=== PATIENT | female | born 1985 | race Two or more races ===

== ENCOUNTER 2022-10-16 10:23 | Outpatient (REF) | payer OTHER, SELFPAY ==
--- NOTE | ~2022-10-16 | XR_ITS ---
EXAMINATION: XR LUMBOSACRAL SPINE CLINICAL INFORMATION: Low back pain. COMPARISON: None. TECHNIQUE: 3 views of the lumbosacral spine. FINDINGS: There are 5 [id number] lumbar vertebrae. The bony texture and alignment is satisfactory. No acute fracture, spondylolisthesis, or spondylolysis is identified. The disc spaces are maintained. Pedicles intact. Sacroiliac joints with mild sclerosis but no evidence of widening or ankylosis. XR/XR lumbar spine 2-3V IMPRESSION: No significant bony abnormality of the lumbar spine identified.
[2022-10-16 10:46] LABS: MANUAL DIFF FLAG NO
[2022-10-16 10:58] LABS: Basophils Absolute Auto 0.1 X10*3/uL (0.0-0.2); Basophils Percent Auto 0.7 % (0-2); Eosinophils Absolute Auto 0.3 X10*3/uL (0.0-0.4); Eosinophils Percent Auto 3.7 % (0-4); Hematocrit 42.5 % (37.0-47.0); Hemoglobin 14.5 g/dl (12.0-16.0); Imm Gran Abs Auto 0.02 X10*3/uL (0.00-0.03); Imm Gran Pct Auto 0.2 % (0.0-0.4); Lymphocytes Absolute Auto 2.7 X10*3/uL (1.2-4.9); Lymphocytes Percent Auto 32.8 % (20-40); Mean Corpuscular HGB Conc 34.1 g/dl (31.0-35.0); Mean Corpuscular Hemoglobin 30.7 pg (27.0-33.0); Mean Platelet Volume 9.4 fL (9.4-12.3); Monocytes Absolute Auto 0.4 X10*3/uL (0.1-1.2); Neutrophils Absolute Auto 4.6 x10*3/uL (2.0-8.3); Neutrophils Percent Auto 57.6 % (45-73); Platelet Count 352 X10*3/uL (160-400); Red Blood Count 4.72 X10*6/uL (4.20-5.50); Red Cell Distribution Width 11.7 % (11.0-16.0); White Blood Count 8.1 X10*3/uL (4.8-10.8)
[2022-10-16 12:18] LABS: Alanine Aminotransferase 11 U/L (0-31); Albumin Level 3.7 g/dL (3.5-5.0); Alkaline Phosphatase 111 U/L (39-117); Anion Gap 11 (12-20); Aspartate Amino Transferase 12 U/L (5-31); Bilirubin Total 0.5 mg/dL (0.0-1.0); Blood Urea Nitrogen 7 mg/dL (9-16); Calcium 9.2 mg/dL (8.4-10.2); Carbon Dioxide 28 mmol/L (22-29); Chloride 105 mmol/L (96-108); Cholesterol 190 mg/dL; Estimated Glomerular Filt Rate > 60; Glucose Fasting 103 mg/dL (60-99); HDL Cholesterol 61 mg/dL; LDL Cholesterol Calculated 113 mg/dl; Potassium 4.6 mmol/L (3.3-5.1); Sodium 139 mmol/L (135-145); Thyroid Stimulating Hormone 1.53 uIU/mL (0.32-4.0); Total Protein 6.4 g/dL (6.5-8.0); Triglycerides 83 mg/dL
== END 2022-10-16 10:24 | disposition home or self-care (01) ==
LOC: HO.LAB 10:23
PROVIDERS: PCP Internal Medicine; Visit Provider Internal Medicine
DX: M54.50 Low back pain, unspecified (principal); E78.5 Hyperlipidemia, unspecified; E66.9 Obesity, unspecified
CPT/HCPCS: 36415; 72100; 80053; 80061; 84443; 85025

== ENCOUNTER 2022-11-01 14:08 | Outpatient (REF) | payer OTHER, SELFPAY ==
--- NOTE | ~2022-11-01 | US_ITS ---
EXAMINATION: US THYROID CLINICAL INFORMATION: Nontoxic goiter, unspecified COMPARISON: None TECHNIQUE: Linear transducer grayscale and color Doppler examination with attention to the region of the thyroid. FINDINGS: SIZE: Measurements of the thyroid lobes and nodules are given in sagittal, anteroposterior and transverse dimensions respectively. Right Thyroid Lobe: 4.02 x 1.42 x 1.10 cm, volume 3.29 mL. Parenchyma: The gland echotexture is homogeneous. Thyroid vascularity is normal. Left Thyroid Lobe: 4.47 x 1.11 x 1.34 cm, volume 3.48 mL. Parenchyma: The gland echotexture is homogeneous. Thyroid vascularity is normal. Isthmus: 0.38 cm in maximum AP dimension. Estimated total number of nodules greater than or equal to 1 cm: 0. Lab Aide nodules are described as follows: 1. Location: Right mid. Size: 0.45 x 0.31 x 0.42 cm, volume 0.03 mL. Nodule characteristics: Composition: Spongiform (0). Echogenicity: Anechoic (0). Shape: Not taller than wide (0). Margins: Smooth (0). Echogenic Foci: None (0). ACR TI-RADS total points: 0 ACR TI-RADS category: 1 NODES: No lymphadenopathy is seen in the tissue surrounding the thyroid gland. US/US thyroid IMPRESSION: 4 mm anechoic cyst in the right mid thyroid. No imaging follow-up recommended per TI-RADS criteria. ACR TI-RADS RECOMMENDATION REFERENCE: * TR1 (0 point) and TR 2 (2 points): No FNA or follow up.
== END 2022-11-01 14:09 | disposition home or self-care (01) ==
LOC: HO.HMGCX 14:08
PROVIDERS: PCP Internal Medicine; Visit Provider Internal Medicine
DX: E04.9 Nontoxic goiter, unspecified (principal)
CPT/HCPCS: 76536

== ENCOUNTER → 2022-11-06 13:57 | Outpatient (REF) | payer OTHER, SELFPAY | LOC: HO.SL 13:57 | PROVIDERS: Visit Provider Internal Medicine | DX: G47.33 Obstructive sleep apnea (adult) (pediatric) (principal); R40.0 Somnolence | CPT/HCPCS: 95806 ==

== ENCOUNTER → 2022-11-27 15:39 | Outpatient (BNVA) | payer OTHER, SELFPAY | PROVIDERS: PCP Internal Medicine; Visit Provider Internal Medicine | DX: Z13.89 Encounter for screening for other disorder (principal) ==

== ENCOUNTER 2022-12-05 16:04 | Outpatient (REF) | payer OTHER, SELFPAY ==
--- NOTE | 2022-12-05 17:20 | PFT_ITS ---
INDICATION: Dyspnea. SPIROMETRY: FEV1 to FVC of 82% with an FEV1 of 3.07 L, which is 88% predicted and an FVC of 3.71 L, which is 89% predicted. No significant response to bronchodilator is noted. Of note, the [id number] was decreased down to 66% of predicted pre bronchodilators. The maximum voluntary ventilation 87% of predicted. LUNG VOLUMES: Total lung capacity 84% predicted with an expiratory residual volume of 40% predicted. DIFFUSION CAPACITY: DLCO of 80% predicted. COMPARISONS: None. INTERPRETATION: No obstructive, nor restrictive ventilatory defects identified. No significant response to bronchodilators noted. Patient does appear to have some decreased small airways disease which could be secondary to elevated BMI versus underlying asthma. Maximum voluntary ventilation is within normal limits. Lung volumes are normal except for decrease in the expiratory residual volume secondary to an elevated BMI. Diffusion capacity is low normal. If asthma is in the differential, methacholine challenge may be helpful for assisting for hyper-reactive airway disease. Clinical correlation warranted. MD CAIT Prakash/MODL / [phone]
== END 2022-12-05 16:05 | disposition home or self-care (01) ==
LOC: HO.RESP 16:04
PROVIDERS: PCP Internal Medicine; Visit Provider Internal Medicine
DX: E66.9 Obesity, unspecified (principal); R06.00 Dyspnea, unspecified
CPT/HCPCS: 94060; 94727; 94729

== ENCOUNTER → 2023-01-21 15:58 | Outpatient (BNVA) | payer OTHER, SELFPAY | PROVIDERS: PCP Internal Medicine; Visit Provider Internal Medicine | DX: Z13.89 Encounter for screening for other disorder (principal) ==

== ENCOUNTER 2023-10-16 07:52 | Outpatient (AMB) | payer OTHER, SELFPAY ==
--- NOTE | 2023-10-16 07:57 | MHC.PC.OV ---
Vital Signs 10/16/23 07:58 Height 5 ft 8 in Weight 222 lb BMI 33.8 BP 110/82 Blood Pressure Location Lt brachial Position Sitting Intake Visit Reasons: PE Intake Note: Patient here for a physical exam Student Counselor Required: No Accompanied by: Self / Same As Patient Allergies compazine Adverse Reaction (Severe, Uncoded 10/16/23 08:04) Irritable Medication List - Last Reconciled 10/16/23 by Marcela Boyer MD Tobacco use date assessed: 02/04/23 Dental Screening Dental Screen Date: 10/16/23 Did you have a dental visit in the last 12 months?: Yes Did you have a dental problem in the last 6 months where you did not have access to dental care?: No Was dental information given to patient?: Patient has dentist HPI HPI Comments History of Present Illness Details This is a 38-year-old female that comes for her physical exam. Last Pap smear was over 3 years ago. No chest pain or shortness of breath. She is obese with a BMI of 33.8 and was advised to diet and exercise. [facility] Surgical History History of breast augmentation History of tubal ligation History of abdominoplasty History of wisdom tooth extraction Family History Father Hypercholesteremia Mother Diabetes Hypercholesteremia Sleep apnea Asthma Rheumatoid arthritis Stroke Breast cancer Mental health disorder Brother Mental health disorder Other Substance use disorder Social History Housing: Apartment Alcohol intake: current Alcohol intake frequency: holidays/special occasions only Alcohol type: wine Patient Tobacco Use Status: Never used Tobacco e-Cigarette/Vaping Use: Never Used Second Hand Smoke Exposure: No service: No Current occupational status: employed Current occupational exposures/hazards: No Cognitive needs: No Hearing needs: No Vision needs: No Questionnaire Thrive Questionnaire Date Thrive assessed: 02/04/23 REMA-7 AMB Questionnaire REMA-7 Date REMA - 7 assessed: 02/04/23 Source: Developed by Drs. Juvenal Daniels, Janice Montero, Ed Cisneros and colleagues, with an educational tonio from [employer]. Review of Systems Const All systems reviewed & are unremarkable except as noted in HPI and below Eyes Reports no additional complaints, Denies change in vision and Denies other visual disturbances Card Denies chest pain at rest, Denies chest pain with activity, Denies edema, Denies irregular heart rhythm, Denies claudication, Denies dyspnea, Denies dyspnea on exertion, Denies orthopnea, Denies paroxysmal nocturnal dyspnea and Denies slow heart rate Resp Denies cough, Denies dyspnea and Denies dyspnea on exertion GI Denies abdominal pain, Denies change in bowel habits, Denies excessive flatus, Denies nausea and Denies vomiting Denies urinary incontinence, Denies urinary hesitancy and Denies urinary urgency Musc Denies abnormal gait, Denies atrophy, Denies deformity and Denies limited range of motion Skin/Breast Denies bleeding lesions, Denies changing lesions and Denies rash Neuro Denies abnormal gait, Denies behavioral changes, Denies confusion and Denies lack of coordination Psych Denies behavioral changes and Denies confusion Physical exam (Primary Care) Vital Signs: Last Vital Signs BP 110/82 10/16/23 07:58 BMI result Body Mass Index 33.8 Tobacco/Smoking Status: Tobacco use Status Tobacco use date assessed 02/04/23 10/16/23 08:04 Patient Tobacco Use Status Never used Tobacco 10/16/23 08:04 e-Cigarette/Vaping Use Never Used 10/16/23 08:04 Thrive Assessment: Date of Thrive Assessment Date Thrive assessed 02/04/23 10/16/23 08:04 Const General: No confusion Orientation/consciousness: patient oriented x3 and No confusion HENMT Head: Yes normal to inspection, Yes normocephalic and Yes atraumatic Ears: external ears normal Eyes General: appearance normal, both eyes and all related structures Eyelids: Yes eyelids normal Conjunctivae: conjunctivae normal Neck Neck: Yes normal visual inspection and Yes supple Resp Effort & Inspection: normal respiratory effort Auscultation: clear to auscultation bilaterally Cardio Jugular venous distension: no JVD Rate: regular rate Rhythm: regular rhythm Heart sounds: S1 normal heart sound present and S2 normal heart sound present GI Inspection: Yes normal to inspection Palpation (GI): Soft to palpation and nontender Auscultation: normal bowel sounds Skin General skin exam: no rashes or lesions noted Neuro General: patient oriented x3, no focal motor deficits and No confusion Extrem General: Yes full ROM Psych Appearance: grossly normal Office Procedures Flu Questionnaire Does the patient have a severe egg allergy?: No Immunizations flu vacc [id number] 6mos up(PF) 60 mcg(15 mcgx4)/0.5 mL IM syringe Performing Provider: Marcela Boyer MD [facility] Documented (not given) by: DENIA Patrick on 10/16/23 08:04 Reason Not Given: Patient Refused Assessment and Plan Assessment & Plan (1) Physical exam: Code(s): Z00.00 - Encounter for general adult medical examination without abnormal findings Plan: Repeat in a year. Orders: Orders Comprehensive [facility]. Panel Fast Today Z00.00 - Encounter for general adult medical examination without abnormal findings Vitamin D 25-OH Total Today E55.9 - Vitamin D deficiency, unspecified Influenza [id number] Immunization Today Z23 - Encounter for immunization Lipid Panel Today Z00.00 - Encounter for general adult medical examination without abnormal findings Vitamin B12 and Folate Today E53.8 - Deficiency of other specified B group vitamins Referrals [facility] [employer] Referral Z12.4 - Encounter for screening for malignant neoplasm of cervix Coding Level of Care Code Est Pt Prev Care 18-39y(67418) Diagnoses Physical exam Z00.00 Time Spent (min) 31
[2023-10-16 07:58] VITALS: BP 110/82; BMI 33.8
== END 2023-10-16 08:14 | disposition home or self-care (01) ==
PROVIDERS: Visit Provider Internal Medicine
DX: Z00.00 Encounter for general adult medical examination without abnormal findings (principal)
CPT/HCPCS: 99395

== ENCOUNTER 2024-01-07 13:17 | Outpatient (REF) | payer OTHER, SELFPAY ==
[2024-01-13 12:38] LABS: HPV mRNA E6/E7 rflx Not Detected (Not Detected)
== END 2024-01-07 13:18 | disposition home or self-care (01) ==
LOC: HO.LNP 13:17
PROVIDERS: PCP Internal Medicine; Visit Provider Obstetrics & Gynecology
DX: Z01.419 Encounter for gynecological examination (general) (routine) without abnormal findings (principal); Z11.51 Encounter for screening for human papillomavirus (HPV)
CPT/HCPCS: 87624; 88142

== ENCOUNTER 2024-01-07 13:17 | Outpatient (AMB) | payer OTHER, SELFPAY ==
[2024-01-07 13:28] VITALS: BMI 34.4
--- NOTE | 2024-01-07 13:28 | MHC.OFFVIS ---
Intake Vital Signs 01/07/24 13:28 Height 5 ft 8 in Weight 226 lb BMI 34.4 Intake Visit Reasons: New patient Annual Intake Note: Last pap 2015 per GEOVANY, arvind abn pap 2005 asc-h +hpv neg colpo 2005 Corporate Trust Officer: Corporate Trust Officer Present Allergies compazine Adverse Reaction (Severe, Uncoded 01/07/24 13:29) Irritable Is last menstrual period known: Yes Last menstrual period: 12/21/23 HPI HPI Comments History of Present Illness Details Presenting for annual exam. No complaints. Last Pap/HPV was negative according to patient in 2020 The patient had a history of ascus/HPV positive in 2015, colpo biopsy was negative , this was followed by multiple negative co testing afterwards, according to the patient reports are not available [facility] Medical History (Updated 01/07/24 @ 13:56 by Cesar Johns MD) ASCUS with positive high risk HPV cervical Surgical History History of breast augmentation History of tubal ligation History of abdominoplasty History of wisdom tooth extraction Family History (Updated 01/07/24 @ 13:30 by DENIA Morfin) Father Hypercholesteremia Mother Diabetes Hypercholesteremia Sleep apnea Asthma Rheumatoid arthritis Stroke Breast cancer Mental health disorder Endometriosis Brother Mental health disorder Maternal Uncle No problems noted. Maternal Grandmother Breast cancer Other Substance use disorder Social History (Updated 01/07/24 @ 13:31 by DENIA Morfin) Housing: Apartment Alcohol intake: never Patient Tobacco Use Status: Never used Tobacco e-Cigarette/Vaping Use: Never Used Second Hand Smoke Exposure: No service: No Current occupational status: employed Current occupational exposures/hazards: No Sexually active: Yes Sexual orientation: Straight/Heterosexual Gender identity: Female Cognitive needs: No Hearing needs: No Vision needs: No Female Reproductive History Menstrual Duration of menses: 3-5 days Date of last menstrual period: 12/21/23 control method: none Total pregnancies: 2 Full term: 2 Number of Living Children: 2 History of abnormal pap smear: Yes (asc-h +hpv neg colpo 2005) Review of Systems Const All systems reviewed & are unremarkable except as noted in HPI and below Card Reports as per HPI Resp Reports as per HPI GI Reports as per HPI and Reports no additional complaints Reports as per HPI Physical Exam Vital Signs: BMI result Body Mass Index 34.4 Const General: cooperative, healthy appearing and comfortable Chest Chest palpation & inspection: normal inspection of the chest and normal palpation of entire chest wall Breast/axilla inspection: normal inspection of the breasts and normal inspection of the axillae Breast/axilla palpation: normal palpation of the breasts, normal palpation of the axillae and no axillary lymphadenopathy Resp Effort & Inspection: normal respiratory effort Auscultation: clear to auscultation bilaterally Percussion: percussion normal Cardio Palpation: normal PMI Rate: regular rate Rhythm: regular rhythm Heart sounds: no murmurs and no rubs Peripheral pulses: Peripheral pulses 2+ throughout GI Inspection: Yes normal to inspection Palpation (GI): Soft to palpation, nontender, no guarding, not rigid and No hepatosplenomegaly present Percussion: Yes normal to percussion Auscultation: normal bowel sounds Rectal Exam - Female: deferred General: Yes bladder normal to palpation External Female Exam: No lesion Speculum Exam - Vagina: normal appearance of the vagina, normal palpation, normal vaginal discharge and not erythematous Speculum Exam - Cervix: normal appearance of the cervix and normal palpation Bimanual exam- vagina & uterus: normal bimanual exam, normal palpation, uterine size normal, bladder normal to palpation, consistency normal and normal palpation Bimanual Exam- Adnexa, other: normal adnexae, no masses and no tenderness Assessment & Plan Assessment & Plan (1) Well woman exam: Code(s): Z01.419 - Encounter for gynecological examination (general) (routine) without abnormal findings Plan: Cotesting done. Counseled the patient about the recommended dietary allowance of 1000 mg of Calcium & 600 IU of vitamin D. The patient was instructed to perform monthly self-breast exams and to schedule an annual exam in a year; All questions answered and the patient verbalized understanding. Instructed the patient to schedule annual exam in a year Coding Level of Care Code New Pt Prev Care 18-39yr([id number] Diagnoses Well woman exam Z01.419
== END 2024-01-07 13:59 | disposition home or self-care (01) ==
LOC: HO.HWS 13:17
PROVIDERS: PCP Internal Medicine; Visit Provider Obstetrics & Gynecology
DX: Z01.419 Encounter for gynecological examination (general) (routine) without abnormal findings (principal)
CPT/HCPCS: 99385

== ENCOUNTER 2024-10-19 10:13 | Outpatient (REF) | payer OTHER, SELFPAY ==
[2024-10-19 11:23] LABS: MANUAL DIFF FLAG NO
[2024-10-19 11:32] LABS: Basophils Absolute Auto 0.1 X10*3/uL (0.0-0.2); Basophils Percent Auto 0.8 % (0-2); Eosinophils Absolute Auto 0.3 X10*3/uL (0.0-0.4); Eosinophils Percent Auto 4.4 % (0-4); Hematocrit 39.4 % (37.0-47.0); Hemoglobin 13.6 g/dl (12.0-16.0); Imm Gran Abs Auto 0.01 X10*3/uL (0.00-0.03); Imm Gran Pct Auto 0.1 % (0.0-0.4); Lymphocytes Absolute Auto 2.6 X10*3/uL (1.2-4.9); Lymphocytes Percent Auto 33.8 % (20-40); Mean Corpuscular HGB Conc 34.5 g/dl (31.0-35.0); Mean Corpuscular Hemoglobin 30.5 pg (27.0-33.0); Mean Corpuscular Volume 88.3 fL (80.0-98.0); Monocytes Absolute Auto 0.3 X10*3/uL (0.1-1.2); Monocytes Percent Auto 4.4 % (2-11); Neutrophils Absolute Auto 4.4 x10*3/uL (2.0-8.3); Neutrophils Percent Auto 56.5 % (45-73); Platelet Count 357 X10*3/uL (160-400); Red Blood Count 4.46 X10*6/uL (4.20-5.50); Red Cell Distribution Width 12.5 % (11.0-16.0); White Blood Count 7.8 X10*3/uL (4.8-10.8)
[2024-10-19 12:25] LABS: Alanine Aminotransferase 10 U/L (0-31); Albumin Level 3.7 g/dL (3.5-5.0); Alkaline Phosphatase 91 U/L (39-117); Anion Gap 7 (12-20); Aspartate Amino Transferase 15 U/L (5-31); Bilirubin Total 0.5 mg/dL (0.0-1.0); Blood Urea Nitrogen 9 mg/dL (9-16); Calcium 8.9 mg/dL (8.4-10.2); Carbon Dioxide 26 mmol/L (22-29); Chloride 112 mmol/L (96-108); Cholesterol 209 mg/dL (<200); Estimated Glomerular Filt Rate > 60; Glucose Fasting 98 mg/dL (60-99); HDL Cholesterol 56 mg/dL (>40); LDL Cholesterol Calculated 141 mg/dL (<100); Potassium 4.2 mmol/L (3.3-5.1); Sodium 141 mmol/L (135-145); Total Protein 6.8 g/dL (6.5-8.0); Triglycerides 63 mg/dL (<150)
[2024-10-19 12:30] LABS: Folate 9.4 ng/mL (> or = 4.0); Vitamin B12 546 pg/mL (200-900)
[2024-10-19 12:32] LABS: Free T4 (Free Thyroxine) 0.92 ng/dL (0.71-1.85); Thyroid Stimulating Hormone 1.81 uIU/mL (0.32-4.0)
== END 2024-10-19 10:14 | disposition home or self-care (01) ==
LOC: HO.LAB 10:13
PROVIDERS: PCP Internal Medicine; Visit Provider Internal Medicine
DX: Z00.00 Encounter for general adult medical examination without abnormal findings (principal); Z23 Encounter for immunization; R06.00 Dyspnea, unspecified; J45.909 Unspecified asthma, uncomplicated; G47.33 Obstructive sleep apnea (adult) (pediatric); E78.5 Hyperlipidemia, unspecified; E66.9 Obesity, unspecified; Z68.35 Body mass index [BMI] 35.0-35.9, adult; E53.8 Deficiency of other specified B group vitamins; E55.9 Vitamin D deficiency, unspecified
CPT/HCPCS: 36415; 80053; 80061; 82306; 82607; 82746; 84439; 84443; 85025; 90471; 90715; 96127

== ENCOUNTER 2024-10-19 10:13 | Outpatient (AMB) | payer OTHER, SELFPAY ==
--- NOTE | 2024-10-19 10:32 | A.OFFPC_ITS ---
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 Accompanied by: Significant Other Allergies compazine Adverse Reaction (Severe, Uncoded 10/19/24 10:48) Irritable Medication List - Last Reconciled 10/19/24 by Marcela Boyer MD No Known Home Meds Tobacco use date assessed: 10/19/24 Dental Screening Dental Screen Date: 10/19/24 Did you have a dental visit in the last 12 months?: Yes Did you have a dental problem in the last 6 months where you did not have access to dental care?: No Was dental information given to patient?: Patient has dentist HPI HPI Comments History of Present Illness Details The patient is a 39-year-old female presenting for an annual physical examination. She reports a history of asthma, which developed following a COVID- 19 infection. She experienced a recent upper respiratory infection at the beginning of August, resulting in a decreased lung capacity that has not fully recovered. Her asthma inhaler has been depleted, exacerbating her breathing difficulties. There is a history of noncompliance with the CPAP machine, which is not providing relief for her diagnosed sleep apnea. She underwent breast reduction surgery with implant removal in 2023. Previous surgical history includes an abdominoplasty and tubal ligation. An allergic reaction to Compazine is noted. - Patient's last tetanus (Tdap) vaccine was in 2011; a booster is recommended. - Recent Pap smear in 2023 showed negati ve HPV results. - Blood work needed for a comprehensive health assessment including thyroid function (TSH, T4), serum glucose, renal and hepatic panels, cholesterol, hemoglobin, platelets, and vitamins B12 and D. - Dietary adjustments discussed for weig ht management, including intermittent fasting and portion control. PFSH Medical History ASCUS with positive high risk HPV cervical Surgical History History of reduction surgery of right breast History of breast augmentation History of tubal ligation History of abdominoplasty History of wisdom tooth extraction Family History Father Hypercholesteremia Mother Diabetes Hypercholesteremia Sleep apnea Asthma Rheumatoid arthritis Stroke Breast cancer Mental health disorder Endometriosis Brother Mental health disorder Maternal Uncle No problems noted. Maternal Grandmother Breast cancer Other Substance use disorder Social History Housing: Apartment Alcohol intake: never Patient Tobacco Use Status: Never used Tobacco e-Cigarette/Vaping Use: Never Used Second Hand Smoke Exposure: No service: No Current occupational status: employed Current occupational exposures/hazards: No Sexual orientation: Straight/Heterosexual Gender identity: Female Cognitive needs: No Hearing needs: No Vision needs: No Questionnaire PHQ-9 Over the last 2 weeks, how often have you been bothered by any of the following problems? 1. Little interest or pleasure in doing things: not at all 2. Feeling down, depressed, or hopeless: not at all 3. Trouble falling or staying asleep, or sleeping too much: not at all 4. Feeling tired or having little energy: several days 5. Poor appetite or overeating: not at all 6. Feeling bad about yourself - or that you are a failure or have let yourself or your family down: not at all 7. Trouble concentrating on things, such as reading the newspaper or watching television: not at all 8. Moving or speaking so slowly that other people could have noticed. Or the opposite - being so fidgety or restless that you have been moving around a lot more than usual: not at all 9. Thoughts that you would be better off or of hurting yourself in some way: not at all Total score: 1 Depression Screening Interpretation: Negative Depression Screening Done: Yes 16101 - PHQ-9 Billing: Yes Source: Developed by Drs. Juvenal Daniels, Janice Montero, Ed Cisneros and colleagues, with an educational tonio from [employer]. Thrive Questionnaire Date Thrive assessed: 10/19/24 I am a: Patient What is your living situation today?: I have a steady place to live Within the past 12 months, did the food you bought not last and you didn't have the money to get more?: Sometimes True Within the past 12 months, did you worry whether your food would run out before you got money to buy more?: Often true Do you have trouble paying for medicines?: No Do you have trouble getting transportation to medical appointments?: No Do you have trouble paying your heating and electricity bill?: No Do you have trouble taking care of your child, family member or friend?: I choose not to answer this question Do you have trouble with day-to-day activities such as bathing, preparing meals, shopping, managing finances, etc.?: I choose not to answer this question Are you currently unemployed and looking for a job?: I choose not to answer this question Are you interested in more education?: I choose not to answer this question Please select the resources that you would like help with: None THRIVE Score: 2 REMA-7 AMB Questionnaire REMA-7 Date REMA - 7 assessed: 02/04/23 Source: Developed by Drs. Juvenal Daniels, Janice Montero, Ed Cisneros and colleagues, with an educational tonio from [employer]. Review of Systems Const Details: - Respiratory: Reports decreased lung capacity post-upper respiratory infection; difficulty breathing improving. - Gastrointestinal: Denies frequent bowel movements but indicates regularity less than three times per week, accepted as non-problematic. Physical exam (Primary Care) Vital Signs: Last Vital Signs BP 122/78 10/19/24 10:34 BMI result Body Mass Index 35.0 BMI Assessment/Plan discussion: High BMI High, discussed plan: lifestyle, weight reduction, dietary and physical activity Tobacco/Smoking Status: Tobacco use Status Tobacco use date assessed 10/19/24 10/19/24 10:38 Patient Tobacco Use Status Never used Tobacco 10/19/24 10:34 e-Cigarette/Vaping Use Never Used 10/19/24 10:34 PHQ-9: PHQ-9 Score PHQ-9: Total score 1 10/19/24 11:01 Depression Screening Interpretation: Negative Thrive Assessment: Date of Thrive Assessment Date Thrive assessed 10/19/24 10/19/24 10:34 Const Other: General: Cooperative, healthy appearing, comfortable, no acute distress and well developed Orientation: Patient oriented x3 Limitations: No limitations Head: Normal to inspection Ears: Hearing grossly normal bilaterally Nose: Normal external nose present Face and sinus: Normal facial exam Eyes: Appearance normal, both eyes and all related structures Neck: Normal visual inspection and Yes full ROM Respiratory: Normal respiratory effort but reports difficulty regaining lung capacity after a recent cold. Clear to auscultation bilaterally Cardiovascular: Regular rate and rhythm. Normal S1 and S2 GI: Normal to inspection. Soft to palpation and nontender Skin: No rashes or lesions noted Neuro: Patient oriented x3 Extremities: Normal to inspection Office Procedures Flu Questionnaire Does the patient have a severe egg allergy?: No Immunizations Fluarix Triv [id number] (PF) 45 mcg (15 mcg x 3)/0.5 mL IM syringe Performing Provider: Marcela Boyer MD Performing Location: [facility] Documented (not given) by: DENIA Patrick on 10/19/24 10:38 Reason Not Given: Patient Refused Boostrix Tdap 2.5 Lf unit-8 mcg-5 Lf/0.5 mL intramuscular syringe Performing Provider: Marcela Boyer MD Performing Location: [facility] Administered by: DENIA Patrick on 10/19/24 11:03 Dose Route Admin Location Dispensed Lot Number Expiration Date NDC Head Of Mathematics 0.5 mL IM Left Deltoid 0.5 mL [id number] 11/13/26 40767-177-87 [email or web address] VIS Given Date VIS Provided VIS Publication Date 10/19/24 Single Vaccine 21 Eligibility Eligibility Date Funding Source Not [facility] Eligible 10/19/24 Private Coding Level of Care Code Est Pt Level 3 (33404) Est Pt Prev Care 18-39y(93217) Diagnoses Physical exam Z00.00 Dyspnea R06.00 Mild asthma J45.909 KIAN (obstructive sleep apnea) G47.33 Additional Codes PHQ-9 - 36776 - PHQ-9 Billing: Yes ([id number]) Time Spent (min) 31 Assessment & Plan Assessment & Plan (1) Physical exam: Code(s): Z00.00 - Encounter for general adult medical examination without abnormal findings Category: Medical (2) Dyspnea: Comment: DYSPNEA ON EXERTION . PULMONARY FUNCTION TEST IS NORMAL, EXCEPT THAT SHE HAS GOOD RESPONSE TO BRONCHODILATOR THERAPY. THIS MAY BE INDICATED OF OF A MILD DEGREE OF EXERCISE INDUCED ASTHMA. I THINK IT WILL BE GOOD IDEA TO HAVE ALBUTEROL INHALER ON HAND AND USE 2 PUFFS P.R.N. IF SHE BECOMES SHORT OF BREATH WITH EXERTION. Code(s): R06.00 - Dyspnea, unspecified Category: Medical (3) Mild asthma: Code(s): J45.909 - Unspecified asthma, uncomplicated Category: Medical (4) KIAN (obstructive sleep apnea): Comment: MODERATELY SEVERE OBSTRUCTIVE SLEEP APNEA WITH TOTAL SLEEP TIME AHI 16.7, MOSTLY POSITIONAL( IN SUPINE POSITION ) ALSO HAS MILD NOCTURNAL HYPOXEMIA. PATIENT HAS TRY TO USE THE CPAP WITH FULL FACE MASK, AFTER 2 NIGHTS SHE STOPPED USING IT BECAUSE SHE DOES NOT FEEL LIKE TOLERATING THE MASK. NOW SHE IS PRACTICING POSITION THERAPY AND IS IMPROVING. I SUGGESTED THAT SHE SHOULD CONTINUE TO DO POSITION THERAPY. BUT ALSO TRY TO USE THE CPAP MASK . WILL CHANGE IT TO NASAL PILLOWS AND SEE IF THAT IS MORE COMFORTABLE. SHE SHOULD ALSO TRY TO LOSE WEIGHT. Code(s): G47.33 - Obstructive sleep apnea (adult) (pediatric) Category: Medical Plan - Administer Tdap vaccine today. - Refill asthma inhaler prescription for improved symptom management. - Recommend dietary changes for weight loss including portion control and intermittent fasting. - Reassess the current sleep apnea management; reconsider CPAP machine compliance. Patient was informed and verbally consented to the use of an ambient scribe for clinic note documentation during this visit. During this visit, we discussed the necessity of updating vaccinations and the importance of managing her asthma symptoms, particularly following her recent upper respiratory infection. We reviewed options for weight loss, emphasizing portion control and intermittent fasting. Risks and benefits of these lifestyle modifications were covered, as well as the need to comply with prescribed therapies, like CPAP for sleep apnea. Consent was obtained for the administration of the Tdap vaccine. Recommendations were made regarding blood work to evaluate vitamin deficiencies and overall metabolic health. Follow-up discussions will focus on the results of lab tests and ongoing management of chronic health issues. Orders: Orders Influenza [id number] Immunization 10/19/24 Z23 - Encounter for immunization Lipid Panel 10/19/24 E78.5 - Hyperlipidemia, unspecified, Z00.00 - Encounter for general adult medical examination without abnormal findings Comprehensive [place]. Panel Fast 10/19/24 Z00.00 - Encounter for general adult medical examination without abnormal findings Complete Blood Count Auto Diff 10/19/24 E66.9 - Obesity, unspecified Thyroid Stimulating Hormone 10/19/24 E66.9 - Obesity, unspecified Vitamin B12 and Folate 10/19/24 E53.8 - Deficiency of other specified B group vitamins Vitamin D 25-OH Total 10/19/24 E55.9 - Vitamin D deficiency, unspecified TDaP Immunization 10/19/24 Z23 - Encounter for immunization Free T4 (Free Thyroxine) 10/19/24 E66.9 - Obesity, unspecified Medications: New budesonide (Pulmicort) 0.25 mg (2 mL) inhalation BID 30 days 120 mL 1RF J45.909 - Unspecified asthma, uncomplicated Patient Instructions: - Use newly prescribed asthma inhaler as directed. - Undergo fasting blood work as scheduled. - Maintain current dietary practices and consider portion control for weight management. - Follow up with CPAP use recommendations and report any ongoing issues. - Return for any concerning symptoms or difficulties with treatment compliance. - Receive Tdap vaccine today for up-to-date immunizations.
[2024-10-19 10:34] VITALS: BP 122/78; BMI 35.0
== END 2024-10-19 11:07 | disposition home or self-care (01) ==
PROVIDERS: PCP Internal Medicine; Visit Provider Internal Medicine
DX: Z00.00 Encounter for general adult medical examination without abnormal findings (principal); R06.00 Dyspnea, unspecified; J45.909 Unspecified asthma, uncomplicated; G47.33 Obstructive sleep apnea (adult) (pediatric)